=== PATIENT | female | born 1970 | race Caucasian/White ===

== ENCOUNTER 2021-05-05 12:59 | Emergency (ER) | payer OTHER, SELFPAY ==
[2021-05-05] VITALS (9 sets, daily range): BP systolic 153–175; BP diastolic 80–92; PULSE 61–74; RESP 9–37; TEMP 36.9; O2SAT 95–100; BMI 20.1
--- NOTE | 2021-05-05 13:15 | DI.RAD.S_ITS ---
PROCEDURE: XR CHEST 1V INDICATIONS: Chest pain TECHNIQUE: One view of the chest was acquired. COMPARISON: None. FINDINGS: Surgical changes and devices: None. Lungs and pleura: Lungs are clear. No pleural effusions or pneumothorax. Mediastinum: Mediastinal contours appear normal. Heart size is normal. Bones and chest wall: No suspicious bony lesions. Overlying soft tissues appear unremarkable. IMPRESSION: No acute cardiopulmonary disease process. Dictated by: María Elena Naidu MD, PhD on 05/05/2021 at 14:23 Approved by: María Elena Naidu MD, PhD on 05/05/2021 at 14:24
[2021-05-05 13:34] LABS: Add Manual Diff / Slide Review NO; Basophils Absolute Auto 0 /uL (0-100); Basophils Percent Auto 0.3 % (0-2); Eosinophils Absolute Auto 0 /uL (0-450); Hematocrit 43.9 % (36-46); Hemoglobin 14.9 g/dL (12.0-16.0); Lymphocytes Absolute Auto 1100 /uL (1100-4500); Lymphocytes Percent Auto 8.2 % (25-40); Mean Corpuscular HGB Conc 33.9 % (30-36); Mean Corpuscular Hemoglobin 31.5 PG (26-34); Monocytes Absolute Auto 500 /uL (0-900); Monocytes Percent Auto 3.9 % (3-14); Neutrophils Absolute Auto 12100 /uL (1500-7000); Neutrophils Percent Auto 87.6 % (50-75); Platelet Count 276 X10^3/uL (150-400); Red Blood Cell Count 4.72 X10^6/uL (4.0-5.2); Red Cell Distribution Width 12.4 % (11.6-14.8); White Blood Cell Count 13.8 X10^3/uL (4.5-11.0)
[2021-05-05 13:43] LABS: COVID19 -Nasal RAPID Negative (Negative)
--- NOTE | 2021-05-05 13:44 | ED.CHESTPAIN ---
HPI - Chest Pain General Chief Complaint: Chest Pain Stated Complaint: all over pain including chest and tingling Time Seen by Provider: 05/05/21 13:14 Source: patient Mode of arrival: Ambulatory History of Present Illness HPI narrative: Patient is a 50-year-old female is here for evaluation of pain all over. Recently she has had multiple issues. She developed an infection around her left eye. She was started on antibiotics. She developed a rash afterwards. Was seen at an outside facility and was told that she was having allergic reaction to the antibiotics. That was her last day any antibiotics so she stopped it. She was started on steroids and Benadryl which she took. Shortly thereafter she started to have pain all over her body. She was then seen at another facility for the symptoms she was having. She was continued on the steroids. Was given gabapentin and also hydrocodone. She is here today for continued symptoms. She states she is having chest pain. Shortness of breath. Abdominal pain. The rash is gone. The redness around her left eye is gone. Related Data Previous Rx's Medication Instructions Recorded lorazepam 1 mg tablet (Ativan) 1 mg PO BID PRN #6 tab 05/05/21 Review of Systems Constitutional Constitutional: Reports system reviewed and no additional complaints, except as documented Eyes Eyes: Reports as per HPI ENT Ears, Nose, Mouth, and Throat: Reports system reviewed and no additional complaints, except as documented Cardiovascular Cardiovascular: Reports as per HPI Respiratory Respiratory: Reports as per HPI Gastrointestinal Gastrointestinal: Reports system reviewed and no additional complaints, except as documented Genitourinary Genitourinary: Reports system reviewed and no additional complaints, except as documented Musculoskeletal Musculoskeletal: Reports as per HPI Integumentary/Breasts Skin/Breast: Reports as per HPI Neurologic Neurologic: Reports system reviewed and no additional complaints, except as documented Psychiatric Psychiatric: Reports system reviewed and no additional complaints, except as documented Hematologic/Lymphatic On Anticoagulants: No Allergic/Immunologic Allergic/Immunologic: Reports system reviewed and no additional complaints, except as documented Patient History Medical History ADHD Cellulitis Social History Smoking Status: Never smoker Smoking Status: Never smoker alcohol intake frequency: 0-2 drinks per day Substance Use Type: does not use Exam Initial Vital Signs Initial Vital Signs: Vital Signs Temperature 98.4 F 05/05/21 13:05 Pulse Rate 65 05/05/21 13:05 Respiratory Rate 18 05/05/21 13:05 Blood Pressure 164/80 H 05/05/21 13:05 Pulse Oximetry 98 05/05/21 13:05 Const General: well developed and well groomed [facility] Head: normal to inspection and normocephalic Eyes General: appearance normal, both eyes and all related structures Resp Auscultation: clear to auscultation bilaterally Percussion: percussion normal Cardio Rate: regular rate Rhythm: regular rhythm GI Inspection: normal to inspection Skin General: no rashes or lesions noted Neuro General: patient alert, patient awake, patient oriented x3 and moves all extremities Extrem General: normal to inspection Psych Other: Appears anxious Scores GCS Garcia coma scale eye opening: Spontaneous Randolph coma scale verbal response: Orientated Garcia coma scale motor response: Obey commands Garcia coma scale total score: 15 Course Orders Ordered: ED Orders 05/05/21 13:10 COVID19 -Nasal swab/Pre-Proc Stat 05/05/21 13:15 XR chest 1V Stat EKG-12 Lead Stat 05/05/21 13:30 Complete Blood Count AUTO DIFF Stat Comprehensive Metabolic Panel Stat Lipase Stat Troponin & CK Cardiac Panel Stat Discontinued Medications Ketorolac Tromethamine (Ketorolac 30 Mg/Ml Vial) 30 mg IV NOW ONE Stop: 05/05/21 13:55 Last Admin: 05/05/21 14:21 Dose: 30 mg Documented by: Lorazepam (Lorazepam 2 Mg/Ml Inj) 1 mg IV NOW ONE Stop: 05/05/21 13:55 Last Admin: 05/05/21 14:22 Dose: 1 mg Documented by: Vital Signs Vital signs: Vital Signs - 8 hr 05/05/21 13:05 05/05/21 13:09 05/05/21 13:10 Temperature 98.4 F Pulse Rate 65 74 71 Respiratory Rate 18 33 H 31 H Blood Pressure 164/80 H 164/80 H Pulse Oximetry 98 99 100 05/05/21 13:30 05/05/21 14:00 05/05/21 14:30 Temperature Pulse Rate 62 61 66 Respiratory Rate 16 14 16 Blood Pressure 171/84 H 175/86 H 153/82 H Pulse Oximetry 99 97 95 05/05/21 15:00 Temperature Pulse Rate 67 Respiratory Rate 18 Blood Pressure 164/92 H Pulse Oximetry 96 MDM - Chest Pain Lab Data Attestation: I reviewed the patient's lab results. Result diagrams: 05/05/21 13:30 05/05/21 13:30 Labs: Lab Results 05/05/21 05/05/21 05/05/21 Range/Units 13:10 13:30 13:30 WBC 13.8 H (4.5-11.0) X10^3/uL RBC 4.72 (4.0-5.2) X10^6/uL Hgb 14.9 (12.0-16.0) g/dL Hct 43.9 (36-46) % MCV 93.0 (80-100) fL MCH 31.5 (26-34) PG MCHC 33.9 (30-36) % RDW 12.4 (11.6-14.8) % Plt Count 276 (150-400) X10^3/uL Neut % (Auto) 87.6 H (50-75) % Lymph % (Auto) 8.2 L (25-40) % [place] % (Auto) 3.9 (3-14) % Eos % (Auto) 0.0 L (2-4) % Baso % (Auto) 0.3 (0-2) % Neut # (Auto) 80522 H (2627-6696) /uL Lymph # (Auto) 1100 (7533-4731) /uL [place] # (Auto) 500 (0-900) /uL Eos # (Auto) 0 (0-450) /uL Baso # (Auto) 0 (0-100) /uL Sodium 132 L (137-145) mmol/L Potassium 3.9 (3.4-5.1) mmol/L Chloride 101 (98-107) mmol/L Carbon Dioxide 27 (22-32) mmol/L BUN 10 (7-17) mg/dL Creatinine 0.54 (0.52-1.04) mg/dL Estimated GFR > 60.0 (>60) mL/min BUN/Creatinine Ratio 18.5 (6-22) Glucose 124 H (70-100) mg/dL Calcium 9.0 (8.4-10.2) mg/dL Total Bilirubin 0.5 (0.2-1.3) mg/dL AST 27 (14-36) IU/L ALT 35 H (<35) IU/L Alkaline Phosphatase 78 (38-126) U/L Total Creatine Kinase < 20 L (30-135) U/L CK-MB (CK-2) TNP CK-MB (CK-2) Rel Index TNP Troponin I < 0.012 (0.01-0.034) ng/mL Total Protein 6.7 (6.3-8.2) g/dL Albumin 3.8 (3.5-5.0) g/dL Globulin 2.9 (1.7-4.1) g/dL Albumin/Globulin Ratio 1.3 (1.0-2.8) Lipase 42 (23-300) U/L SARS-CoV-2 (PCR) Negative (Negative) Imaging Data Chest x-ray: Radiologist's Impression: [address] [id number] ReportSigned Patient: Tiffany LopezMR#: [id number]: 1970Acct:[id number]/Sex: 50 / FDate of Service: 05/05/21Loc: EDAccession Number: [id number] Procedure: XR chest 1V Ordering Provider: Heber Vásquez D.O. PROCEDURE: XR CHEST 1V INDICATIONS: Chest pain TECHNIQUE: One view of the chest was acquired. COMPARISON: None. FINDINGS: Surgical changes and devices: None. Lungs and pleura: Lungs are clear. No pleural effusions or pneumothorax. Mediastinum: Mediastinal contours appear normal. Heart size is normal. Bones and chest wall: No suspicious bony lesions. Overlying soft tissues appear unremarkable. IMPRESSION: No acute cardiopulmonary disease process. Dictated by: María Elena Naidu MD, PhD on 05/05/2021 at 14:23 Approved by: María Elena Naidu MD, PhD on 05/05/2021 at 14:24 ECG Data Attestation: I personally reviewed and interpreted this ECG as follows: Interpretation: Sinus rhythm Ventricular rate is 69 Normal QRS Normal QTC No ST T wave changes MDM Narrative Medical decision making narrative: Patient's labs are unremarkable. Her exam is unremarkable. Low suspicion for anaphylaxis. I do suspect that there is an anxiety component to her symptoms. She did feel better after the Ativan. This very well could be from the prednisone that she is taking. Unfortunately because of the length of time that she has been taking it she does need to complete the next 2 days in order to prevent adrenal issues. Prescription for Ativan was sent to the pharmacy of her choice. She was given return precautions. She expressed understanding agreement. Discharge Plan Departure Patient Disposition: Home Clinical Impression: Body aches Activity Restrictions/Additional Instructions: Your labs and workup here today are very reassuring. I have some suspicion that your symptoms could be because of the prednisone/steroids that you are taking. Unfortunately because you been on them for such a long time you do need to complete the next 2 days in order to prevent other issues. A prescription for some Ativan was sent to the [facility] in [place]. They are open until 8:00 p.m.. Contact her primary doctor for follow-up. Prescriptions: New lorazepam [Ativan] 1 mg tablet 1 mg PO BID PRN (Reason: anxiety) Qty: 6 RF: 0
[2021-05-05 13:48] LABS: Alanine Aminotransferase 35 IU/L (<35); Albumin 3.8 g/dL (3.5-5.0); Albumin Globulin Ratio 1.3 (1.0-2.8); Alkaline Phosphatase 78 U/L (38-126); Aspartate Aminotransferase 27 IU/L (14-36); BUN Creatinine Ratio 18.5 (6-22); Bilirubin Total 0.5 mg/dL (0.2-1.3); Blood Urea Nitrogen 10 mg/dL (7-17); Carbon Dioxide 27 mmol/L (22-32); Chloride 101 mmol/L (98-107); Creatine Kinase < 20 U/L (30-135); Estimated Glomerular Filt Rate > 60.0 mL/min (>60); Globulin 2.9 g/dL (1.7-4.1); Glucose 124 mg/dL (70-100); HEMOLYSIS 26 (0-50); Lipase 42 U/L (23-300); Potassium 3.9 mmol/L (3.4-5.1); Sodium 132 mmol/L (137-145); Total Protein 6.7 g/dL (6.3-8.2)
[2021-05-05 14:00] LABS: Troponin I < 0.012 ng/mL (0.01-0.034)
[2021-05-05] MEDS: KETOROLAC 30 MG/ML VIAL IV (14:21)
[2021-05-05] MEDS: LORazepam 2 MG/ML INJ 1 MG IV (14:22)
--- NOTE | 2021-05-05 15:34 | PC.NURSE ---
Pt sleeping quietly in bed with resps e/u, VSS, in no apparent distress.
== END 2021-05-05 16:16 | disposition home or self-care (01) ==
PROVIDERS: Emergency Provider Emergency Medicine
DX: R07.9 Chest pain, unspecified (principal); R06.02 Shortness of breath; Z20.822 Contact with and (suspected) exposure to COVID-19
CPT/HCPCS: 36415; 71045; 80053; 82550; 83690; 84484; 85025; 87635; 93005; 93010; 96374; 96375; 99284; C9803; J1885; J2060